=== PATIENT | female | born 1985 | race Caucasian/White ===

== ENCOUNTER 2024-03-12 13:01 | Emergency (ER) | payer BC, SELFPAY ==
--- NOTE | ~2024-03-12 | XR_ITS ---
XR abdomen/kub 1V Ordering provider: Megan Bearden NP History: . pain . Comparison: None. FINDINGS: BOWEL: Nonobstructive bowel gas pattern. ORGANOMEGALY: None. SIGNIFICANT PATHOLOGIC CALCIFICATIONS: None. OTHER: No free air is seen under the diaphragm. IMPRESSION: NO ACUTE ABDOMINAL FINDINGS. Reviewed, dictated and finalized at location A.
[2024-03-12 13:14] VITALS: BP 163/102; PULSE 75; RESP 20; TEMP 37.1; O2SAT 97
--- NOTE | 2024-03-12 13:25 | ED.FEMALEGU ---
HPI - Female Genitourinary General Chief complaint: Abdominal Pain Stated complaint: Right Flank Pain Time Seen by Provider: 03/12/24 13:25 Source: patient Mode of arrival: ambulatory Limitations: no limitations History of Present Illness HPI Narrative: 39 yo F presents with c/o sudden onset pain to R mid back approx. 8 days ago while driving home. Since then pain getting progressively worse. Radiating around to R upper ABD. Pain worse when taking deep breath. Denies SOB. No N/V. No change in bowels. Eating normally. Rerports strong pain tolerance . has not taken any OTC meds to treat pain. All systems reviewed and negative except as noted above. Related Data Home Medications Medication Instructions Recorded Confirmed buspirone 5 mg tablet 5 mg PO TID 03/12/24 03/12/24 clindamycin HCl 300 mg capsule See Rx Instructions .Route .COMPLEX 03/12/24 03/12/24 divalproex 250 mg tablet,extended 250 mg PO DAILY 03/12/24 03/12/24 release 24 hr escitalopram oxalate 20 mg tablet 20 mg PO DAILY 03/12/24 03/12/24 ibuprofen 800 mg tablet See Rx Instructions .Route 03/12/24 03/12/24 .COMPLEX PRN Pain metoprolol succinate 50 mg 50 mg PO DAILY 03/12/24 03/12/24 tablet,extended release 24 hr Allergies Allergy/AdvReac Type Severity Reaction Status Date / Time No Known Allergies Allergy Verified 03/12/24 13:21 Review of Systems Review of Systems: CONSTITUTIONAL: Denies fever, chills, or sweats. EYES: Denies visual changes, redness, or discharge. ENT: Denies rhinorrhea, congestion, sore throat, or otalgia. CARDIOVASCULAR: Denies chest pain, palpitations, or edema. RESPIRATORY: Denies cough or dyspnea. GASTROINTESTINAL: Reports right upper abdominal pain. Denies nausea, vomiting, or diarrhea. GENITOURINARY: Denies dysuria or hematuria. SKIN: Denies rash or itching. MUSCULOSKELETAL: Reports right mid back pain. Denies joint pain, or myalgia. NEUROLOGIC: Denies headache, numbness, or weakness. PSYCHIATRIC: Denies anxiety or depression. All other systems reviewed are negative, except as documented in HPI. [facility] Comments At time of signature, agree with nursing past medical, surgical, social and family history. There is no relevant family history pertinent to the presenting complaint. Exam Narrative: GENERAL: This is a well-nourished, well-developed patient, in no apparent distress. HEAD: normocephalic, atraumatic. EYES: PERRL. Sclera clear/white. Vision is grossly intact. EARS: External ears normal NOSE: External nose normal NECK: Neck supple, non-tender without lymphadenopathy, masses or thyromegaly. CARDIOVASCULAR: Regular rate and rhythm without murmurs, gallops, or rubs. RESPIRATORY: Clear to auscultation. Breath sounds equal bilaterally. No wheezes, rales, or rhonchi. GASTROINTESTINAL: Abdomen soft, tenderness to right upper quadrant on palpation, nondistended. Bowel sounds are active. No hepato-splenomegaly, or palpable masses. No guarding. SKIN: warm, Dry, intact with no suspicious lesions or rash, good texture and turgor. NEURO: awake, alert, and oriented to person, place and time. There were no obvious focal neurologic abnormalities. EXTREMITIES: No joint tenderness, effusion, or edema noted. BACK: No midline tenderness. No deformity. No CVA tenderness. Tenderness to R side mid back Course Course Level of Care: Express Care Visit Vital Signs Vital signs: Vital Signs Temperature 37.1 C 03/12/24 13:14 Pulse Rate 75 03/12/24 13:14 Respiratory Rate 03/12/24 13:14 Blood Pressure 163/102 H 03/12/24 13:14 Pulse Oximetry 97 03/12/24 13:14 Oxygen Delivery Room Air 03/12/24 13:14 Temperature 37.1 C 03/12/24 13:14 Pulse Rate 75 03/12/24 13:14 Respiratory Rate 20 03/12/24 13:14 Blood Pressure 163/102 H 03/12/24 13:14 Pulse Oximetry 97 03/12/24 13:14 Oxygen Delivery Room Air 03/12/24 13:14 Transfer Transfered to: [facility] Transportation:
[2024-03-12 13:33] LABS: EDUAAPPEAR Clear; EDUABILI Negative; EDUABLOOD Negative; EDUACOLOR1 Yellow; EDUAGLUCOSE Negative; EDUAKETONE Negative; EDUALEUKO Negative; EDUANITRATE Negative; EDUAPROTEIN Negative; EDUAUROBILI 0.2
== END 2024-03-12 14:15 | disposition short-term general hospital (02) ==
PROVIDERS: Emergency Provider Nurse Practitioner Family
DX: R10.11 Right upper quadrant pain (principal); N80.9 Endometriosis, unspecified
CPT/HCPCS: 74018; 81003; 99203; G0463